=== PATIENT | female | born 1945 | race Caucasian/White ===

== ENCOUNTER 2016-12-24 21:34 | Emergency (ER) | payer MEDICARE, OTHER ==
--- OUTSIDE RECORDS SUMMARY | 2016-12-24 22:33 | XMS REPORT | Continuity of Care Document ---
:1945 Author Organization [facility] ([facility]) Address [address] [place] [address] Phone [phone] Care Team Providers Name Role Phone Talat Carrasco Primary Care Provider [phone] Source Comments This disclosure is being made pursuant to the Care Everywhere program, applicable federal and state laws, and may not contain all informaitonavailable regarding this patient.[facility] ([facility]) Active Allergies and Adverse Reactions Allergen Noted Date Severity Reactions Comments Cefaclor 06/25/2015 Unknown Diphenhydramine 06/25/2015 Unknown Levofloxacin 06/25/2015 Unknown Unclassified Drug Urticaria (Hives),Purpura benadryl Current Medications Prescription Sig. Disp. Refills Start Date End Date Status flecainide 150 mg take 2 tablet by oral 04/24/2014 Active tablet route as needed for atrial fibrillation glimepiride 2 mg Take 0.5 Tabs by 04/24/2014 Active tablet mouth daily triamterene-hydroch Take 1 Tab by mouth 05/19/2008 Active lorothiazide daily (MAXZIDE) 75-50 mg per tablet omeprazole Take 1 Cap by mouth 05/19/2008 Active (PRILOSEC) 20 mg daily enteric coated capsule warfarin (COUMADIN) take as directed by 90 tablet 3 08/24/2015 Active 5 mg tablet anticoagulation clinic amLODIPine 5 mg Take 5 mg by mouth 3 07/15/2016 Active tablet daily. losartan 100 mg Take 100 mg by mouth 1 05/29/2016 Active tablet daily. levothyroxine 25 Take 25 mcg by mouth 0 06/17/2016 Active mcg tablet daily. ROSUVASTATIN Active CALCIUM (CRESTOR PO) loratadine 10 mg Take 10 mg by mouth Active tablet daily. metoPROLol (TOPROL Take 1.5 tablets (150 135 tablet 2 10/23/2016 Active XL) succinate 100 mg total) by mouth mg XL tablet daily. Active Problems Problem Noted Date Sacral mass 10/15/2015 Paroxysmal atrial fibrillation 07/05/2015 Essential hypertension 07/05/2015 Hyperlipidemia 07/05/2015 Most Recent Encounters Date Type Specialty Providers Description 10/23/2016 Refill Cardiac Rehabilitation Ace Morgan, Dx: Paroxysmal atrial MD fibrillation (Primary Dx) Social History Tobacco Use Types Packs/Day Years Used Date Former Smoker Smokeless Tobacco: Never Used Tobacco Cessation:Counseling Given: No Comments: Last Filed Vital Signs Vital Sign Reading Time Taken Blood Pressure 149/63 07/21/2016 10:22 AM CDT Pulse 54 07/21/2016 10:22 AM CDT Temperature 36.4 C (97.5 F) 07/21/2016 10:22 AM CDT Respiratory Rate - - Height 1.702 m (5' 7.01") 07/21/2016 10:22 AM CDT Weight 107.7 kg (237 lb 7 oz) 07/21/2016 10:22 AM CDT Body Mass Index 37.18 07/21/2016 10:22 AM CDT Oxygen Saturation 99% 07/21/2016 10:22 AM CDT Plan of Care Date Type Specialty Providers Description 07/20/2017 Appointment Radiology Chief Comp: Patient Reported Reason For Visit 07/20/2017 Appointment Neurosurgery Yue Hernandez MD Chief Comp: Patient [address] [place] [address] Visit [phone] (Fax) 08/01/2017 Appointment Heart and Vascular Ace Morgan, Chief Comp: Patient MD Reported Reason For [address] [place] [address] [phone] (Fax) Health Maintenance Due Date Last Done Comments Hepatitis B Vaccine (1 of 3 - Primary Series) 1945 Tdap Vaccine 1955 Lipid Disorder Screening 1962 Td Vaccine 1962 Mammogram 1984 Colonoscopy 1994 Zoster Vaccine 2004 Osteoporosis Screening (DXA Bone Density) 2009 Pneumococcal Vaccine (1 of 2 - PCV13) 2009 Influenza Vaccine: Seasonal (#1) 06/05/2016 Results from Last 3 Months Not on file
--- NOTE | 2016-12-24 22:34 | ERNOTE ---
Medical Problem HPI - Narrative Date of Service: 12/24/16 - General Chief Complaint: Palpitations Time Seen by Provider: 12/24/16 22:20 Source: patient Exam Limitations: no limitations - Immun/Allergies/Home Medications Immunizations: IMMUNIZATION HX Immunizations Up to Date Yes History of Influenza Vaccine No Hx Pneumococcal Vaccination No Allergies/Adverse Reactions: Allergies diphenhydramine HCl [From Benadryl] Allergy (Severe, Verified 12/24/16 22:15) Hives cefaclor [From Ceclor] Adverse Reaction (Severe, Verified 12/24/16 22:15) Other levofloxacin [From Levaquin] Adverse Reaction (Severe, Verified 12/24/16 22:15) Nausea Home Medications: HOME MEDICATIONS Glimepiride [Amaryl] 1 mg PO QAM 04/18/14 [Last Taken 04/17/14] Loratadine [Claritin] 10 mg PO DAILY 04/18/14 [Last Taken 04/17/14] Losartan Potassium [Cozaar] 100 mg PO DAILY 04/18/14 [Last Taken 04/17/14] Metoprolol Succinate [Toprol Xl] 150 mg PO DAILY 04/18/14 [Last Taken 04/17/14] Omeprazole Magnesium [Prilosec Otc] 20 mg PO DAILY 04/18/14 [Last Taken 04/17/14 ] Triamterene/Hydrochlorothiazid [Triamterene-Hctz 75-50 mg Tab] 1 each PO DAILY 04/29/14 [Last Taken Unknown] Fluticasone Propionate [Flonase] 2 spray NS DAILY PRN 08/16/14 [Last Taken Unknown] Levothyroxine Sodium [Synthroid] 25 mcg PO DAILY 06/21/15 [Last Taken Unknown] Warfarin Sodium [Coumadin] 5 mg PO DAILY 09/10/15 [Last Taken Unknown] Acetaminophen [Tylenol] 1,000 mg PO Q6H PRN 12/23/15 [Last Taken Unknown] Rosuvastatin Calcium [Crestor] 5 mg PO 3XW 05/12/16 [Last Taken Unknown] amLODIPine BESYLATE [Norvasc] 5 mg PO DAILY 07/03/16 [Last Taken Unknown] - Pain Score Pain Score #1 Pain Score: 0 - History of Present History Narrative: Presents to ER with c/o heart palpitations, onset yesterday, and persisting throughout the day today. Denies any chest pain, but has h/o AFib. Currently on Coumadin, metoprolol, and flecainide. Date (Duration): 12/23/16 Timing: constant Severity: moderate Review of Systems - Review of Systems Constitutional: Present: no symptoms reported EYE: Present: no symptoms reported ENT: Present: no symptoms reported Respiratory: Present: no symptoms reported Cardiology: Present: See HPI, palpitations Gastrointestinal/Abdominal: Present: no symptoms reported Genitourinary: Present: no symptoms reported Musculoskeletal: Present: no symptoms reported Skin: Present: no symptoms reported Neurological: Present: no symptoms reported Endocrine: Present: no symptoms reported Hematologic/Lymphatic: Present: no symptoms reported Psych: Present: no symptoms reported All Other Systems: All systems neg except as marked - Patient's Past Medical History Patient History - Medical: Diabetes Type 2, Hypothyroidism, Obesity, Other Patient History - Cardiac/Respiratory: Atrial Fibrillation Patient History - Cancer: No Hx of Cancer Patient History - Surgical Procedures: Appendectomy, Cholecystectomy, Hysterectomy, Other Patient History - Other: None - Family History Father Family History - Medical: Family History - Cardiac/Respiratory: History Unknown Mother Family History - Medical: Family History - Cardiac/Respiratory: History Unknown - Social History Living Situations: home Abuse History: No History of abuse Psych History: Hx of Anxiety Smoking Status: Never smoker Alcohol Use: none Drug Use: none - Immunizations Immunizations Up to Date: Yes Hx Pneumococcal Vaccination: No History of Influenza Vaccine: No Physical Exam - Physical Exam General Appearance: Present: wd/wn, alert, no apparent distress Eye Exam: Normal inspection: bilateral, PERRL: bilateral, EOMI: bilateral Neck: Present: normal inspection, nontender Respiratory: Present: no respiratory distress, normal breath sounds, no accessory muscle use, chest nontender, lungs clear Cardiovascular/Chest: Present: no murmur, irregularly irregular. Absent: friction rub, chest tenderness Gastrointestinal/Abdominal: Present: normal bowel sounds, nontender, nondistended, soft, no organomegaly Neurological Exam: Present: alert, oriented, normal mood/affect Skin Exam: Present: normal color, warm/dry ED Progress - Results and Orders Patient's Lab Results:: I have reviewed the patient's lab results. - Vital Signs Patient's Vital Signs:: I have reviewed the patient's vital signs. Vital Signs: Vital Signs 12/24/16 22:10 Temperature 36.5 C Pulse Rate 114 H Respiratory 18 Rate Blood Pressure 102/78 O2 Sat by Pulse 94 Oximetry - EKG EKG: atrial fibrillation EKG read: Interp. by me - X-Ray X-Ray #1 X-Ray: chest - No acute finding Interpretation: Interp. by me - NAD - Progress/Reassessment Chief Complaint: General Assessment Departure - Departure Clinical Impression: Chronic a-fib Disposition: Home self-care Condition: Good Instructions: Atrial Fibrillation, [id number] Additional Instructions: Follow up with your PCP JADE. Referrals: Talat Carrasco MD [Primary Care Provider] -
[2016-12-24] MEDS ORDERED: NORMAL SALINE 500 ML IV ONE (22:35)
[2016-12-24 23:17] LABS: Hematocrit 42.1 % (37.0-47.0); Hemoglobin 13.1 gm/dL (12.5-16.0); Mean Cell Volume 81.4 fl (78-100); Mean Corpuscular Hemoglobin 25.3 pg (27-31); Mean Corpuscular Hgb Conc 31.1 g/dl (32-36); Mean Platelet Volume 11.5 fl (6.0-9.5); Neutrophil # 7.5 K/mm3 (1.3-6.0); Neutrophil % 66.9 % (42-75.0); Platelet Count 279 K/mm3 (150-450); Red Blood Count 5.17 M/mm3 (4.2-5.4); Red Cell Distribution Width 16.5 % (11.5-14.0); White Blood Count 11.3 K/mm3 (4.0-10.5)
[2016-12-24 23:30] LABS: Prothrombin Time (Patient) 25.6 Seconds (9.4-11.4)
[2016-12-24 23:31] LABS: INR 2.46 INR (0.90-1.10); Partial Thrombolplastin Time 58.4 Seconds (24-32)
[2016-12-24 23:35] LABS: ALT 29 U/L (19-67); AST 10 U/L (0-48); Albumin * 3.6 gm/dl (3.4-5.0); Alkaline Phosphatase * 184 U/L (50-170); Anion Gap 12.2 mmol/L (6.8-13.8); BUN/Creatinine Ratio 23.7 (9.0-21.6); Bilirubin, Total 0.2 mg/dL (0.0-1.1); Blood Urea Nitrogen 23 mg/dL (3-23); Ca. Corrected For Albumin 9.1 mg/dL (8.4-10.2); Calcium * 9.1 mg/dL (7.9-10.9); Carbon Dioxide 28.7 mmol/L (24-32.6); Chloride 103 mmol/L (97-106); Glucose * 286 mg/dL (70-110); Potassium 3.9 mmol/L (3.4-4.6); Sodium 140 mmol/L (132-142); Total Protein 8.1 gm/dL (6.2-8.2); Troponin I Less than 0.017 ng/ml (0.00-0.10)
[2016-12-25] MEDS ORDERED: DILTIAZEM HCL 5 MG/ML VIAL IV ONE ×2 (00:09→00:10)
[2016-12-25 02:12] VITALS: BP 124/68
== END 2016-12-25 01:39 | disposition home or self-care (01) ==
LOC: ER 21:34
DX: I48.2 Chronic atrial fibrillation (principal); Z79.01 Long term (current) use of anticoagulants

== ENCOUNTER 2017-01-12 03:42 | Emergency (ER) | payer MEDICARE, OTHER ==
[2017-01-12] MEDS ORDERED: LIDOCAINE HCL 20 ML UDC PO ONE (03:52)
[2017-01-12] MEDS ORDERED: MAG HYDROX/ALUMINUM HYD/SIMETH 30 ML UDC PO ONE (03:52)
--- OUTSIDE RECORDS SUMMARY | 2017-01-12 03:57 | XMS REPORT | Continuity of Care Document ---
:1945 Author Organization [facility] ([facility]) Address [address] [place] [address] Phone [phone] Care Team Providers Name Role Phone Talat Carrasco Primary Care Provider [phone] Source Comments This disclosure is being made pursuant to the Care Everywhere program, applicable federal and state laws, and may not contain all informaitonavailable regarding this patient.[facility] ([facility]) Active Allergies and Adverse Reactions Allergen Noted Date Severity Reactions Comments Cefaclor 06/25/2015 Unknown Diphenhydramine 06/25/2015 Unknown Levofloxacin 06/25/2015 Unknown Unclassified Drug Urticaria (Hives),Purpura benadryl Current Medications Prescription Sig. Disp. Refills Start End Date Status Date glimepiride 2 mg Take 2 mg by mouth Active tablet daily. 4 triamterene-hydroc Take 1 Tab by mouth Active hlorothiazide daily 8 (MAXZIDE) 75-50 mg per tablet omeprazole Take 1 Cap by mouth Active (PRILOSEC) 20 mg daily 8 enteric coated capsule warfarin take as directed by 90 tablet 3 Active (COUMADIN) 5 mg FM anticoagulation 5 tablet clinic amLODIPine 5 mg Take 5 mg by mouth 3 Active tablet daily. 6 losartan 100 mg Take 100 mg by 1 Active tablet mouth daily. 6 levothyroxine 25 Take 25 mcg by 0 Active mcg tablet mouth daily. 6 ROSUVASTATIN Active CALCIUM (CRESTOR PO) loratadine 10 mg Take 10 mg by mouth Active tablet daily. metoPROLol Take 1 tablet (200 90 tablet 3 Active succinate 200 mg mg total) by mouth 7 XL tablet daily. flecainide 150 mg take 2 tablet by 12/26/19 Discontinued tablet oral route as 4 17 needed for atrial fibrillation metoPROLol (TOPROL Take 1.5 tablets 135 tablet 2 12/26/19 Discontinued XL) succinate 100 (150 mg total) by 6 17 mg XL tablet mouth daily. Active Problems Problem Noted Date Sacral mass 10/15/2015 Paroxysmal atrial fibrillation 07/05/2015 Essential hypertension 07/05/2015 Hyperlipidemia 07/05/2015 Most Recent Encounters Date Type Specialty Providers Description 12/26/2016 Office Visit Cardiac Rehabilitation Ace Morgan Dx: Geraldine Sarmiento MD atrial fibrillation (Primary Dx) 10/23/2016 Refill Cardiac Rehabilitation Ace Morgan Dx: Geraldine Sarmiento MD atrial fibrillation (Primary Dx) Social History Tobacco Use Types Packs/Day Years Used Date Former Smoker Smokeless Tobacco: Never Used Tobacco Cessation:Counseling Given: No Comments: Last Filed Vital Signs Vital Sign Reading Time Taken Blood Pressure 144/87 12/26/2016 9:02 AM STERILE TECHNICIAN Pulse 82 12/26/2016 9:02 AM STERILE TECHNICIAN Temperature 36.4 C (97.5 F) 07/21/2016 10:22 AM CDT Respiratory Rate - - Height 1.702 m (5' 7") 12/26/2016 9:02 AM STERILE TECHNICIAN Weight 111 kg (244 lb 11.4 oz) 12/26/2016 9:02 AM STERILE TECHNICIAN Body Mass Index 38.32 12/26/2016 9:02 AM STERILE TECHNICIAN Oxygen Saturation 98% 12/26/2016 9:02 AM STERILE TECHNICIAN Plan of Care Date Type Specialty Providers Description 02/28/2017 Appointment Heart and Vascular Ace Morgan, Chief Comp: Patient MD Reported Reason For [address] [place] [address] [phone] (Fax) 07/20/2017 Appointment Radiology Chief Comp: Patient Reported Reason For Visit 07/20/2017 Appointment Neurosurgery Yue Hernandez MD Chief Comp: Patient [address] [place] [address] Visit [phone] (Fax) 08/01/2017 Appointment Heart and Vascular Ace Morgan, Chief Comp: Patient Reported Reason For [address] [place] [address] [phone] (Fax) Health Maintenance Due Date Last Done Comments Hepatitis B Vaccine (1 of 3 - Primary Series) 1945 Tdap Vaccine 1955 Lipid Disorder Screening 1962 Td Vaccine 1962 Mammogram 1984 Colonoscopy 1994 Zoster Vaccine 2004 Osteoporosis Screening (DXA Bone Density) 2009 Pneumococcal Vaccine (1 of 2 - PCV13) 2009 Influenza Vaccine: Seasonal (#1) 06/05/2016 Results from Last 3 Months ECG - EKG 12 LEAD (12/26/2016 9:07 AM) Component Value Range ECG SEVERITY - ABNORMAL ECG - VENT. RATE 96 bpm RR 625 ms QRSD INTERVAL 102 ms QT INTERVAL 380 ms QTC INTERVAL 481 ms QRS AXIS 106 degrees T WAVE AXIS 35 degrees REPORT ATRIAL FIBRILLATION RIGHT VENTRICULAR HYPERTROPHY Interpreting Physician: Ace Morgan MD
[2017-01-12 04:17] LABS: Hematocrit 40.3 % (37.0-47.0); Hemoglobin 12.7 gm/dL (12.5-16.0); Mean Cell Volume 80.9 fl (78-100); Mean Corpuscular Hemoglobin 25.5 pg (27-31); Mean Corpuscular Hgb Conc 31.5 g/dl (32-36); Mean Platelet Volume 11.7 fl (6.0-9.5); Neutrophil # 6.4 K/mm3 (1.3-6.0); Neutrophil % 64.6 % (42-75.0); Platelet Count 289 K/mm3 (150-450); Red Blood Count 4.98 M/mm3 (4.2-5.4); Red Cell Distribution Width 15.9 % (11.5-14.0); White Blood Count 9.9 K/mm3 (4.0-10.5)
[2017-01-12 04:30] VITALS: BP 153/76
[2017-01-12 04:35] LABS: ALT 20 U/L (19-67); AST 11 U/L (0-48); Albumin * 3.2 gm/dl (3.4-5.0); Alkaline Phosphatase * 183 U/L (50-170); BUN/Creatinine Ratio 26.7 (9.0-21.6); Bilirubin, Total 0.3 mg/dL (0.0-1.1); Blood Urea Nitrogen 23 mg/dL (3-23); Ca. Corrected For Albumin 9.1 mg/dL (8.4-10.2); Calcium * 8.8 mg/dL (7.9-10.9); Carbon Dioxide 26.5 mmol/L (24-32.6); Chloride 105 mmol/L (97-106); Glucose * 210 mg/dL (70-110); Potassium 3.5 mmol/L (3.4-4.6); Sodium 141 mmol/L (132-142); Total Protein 7.6 gm/dL (6.2-8.2); Troponin I Less than 0.017 ng/ml (0.00-0.10)
--- NOTE | 2017-01-12 05:07 | ERNOTE ---
Chest Pain/Cardiac HPI Date of Service: 01/12/17 Chief Complaint: Chest Pain Time Seen by Provider: 01/12/17 03:51 Source: patient Exam Limitations: no limitations Immunizations: IMMUNIZATION HX Immunizations Up to Date Yes History of Influenza Vaccine No Hx Pneumococcal Vaccination No Allergies/Adverse Reactions: Allergies diphenhydramine HCl [From Benadryl] Allergy (Severe, Verified 12/24/16 22:15) Hives cefaclor [From Ceclor] Adverse Reaction (Severe, Verified 12/24/16 22:15) Other levofloxacin [From Levaquin] Adverse Reaction (Severe, Verified 12/24/16 22:15) Nausea Home Medications: HOME MEDICATIONS Glimepiride [Amaryl] 1 mg PO QAM 04/18/14 [Last Taken 04/17/14] Loratadine [Claritin] 10 mg PO DAILY 04/18/14 [Last Taken 04/17/14] Losartan Potassium [Cozaar] 100 mg PO DAILY 04/18/14 [Last Taken 04/17/14] Metoprolol Succinate [Toprol Xl] 150 mg PO DAILY 04/18/14 [Last Taken 04/17/14] Omeprazole Magnesium [Prilosec Otc] 20 mg PO DAILY 04/18/14 [Last Taken 04/17/14 ] Triamterene/Hydrochlorothiazid [Triamterene-Hctz 75-50 mg Tab] 1 each PO DAILY 04/29/14 [Last Taken Unknown] Fluticasone Propionate [Flonase] 2 spray NS DAILY PRN 08/16/14 [Last Taken Unknown] Levothyroxine Sodium [Synthroid] 25 mcg PO DAILY 06/21/15 [Last Taken Unknown] Warfarin Sodium [Coumadin] 5 mg PO DAILY 09/10/15 [Last Taken Unknown] Acetaminophen [Tylenol] 1,000 mg PO Q6H PRN 12/23/15 [Last Taken Unknown] Rosuvastatin Calcium [Crestor] 5 mg PO 3XW 05/12/16 [Last Taken Unknown] amLODIPine BESYLATE [Norvasc] 5 mg PO DAILY 07/03/16 [Last Taken Unknown] Famotidine [Pepcid] 40 mg PO HS #30 tab 01/12/17 [Last Taken Unknown] Narrative: pt complains of "really bad heartburn" which she has had before. No nausea or vomiting Review of Systems - Review of Systems Constitutional: Present: no symptoms reported EYE: Present: no symptoms reported ENT: Present: no symptoms reported Respiratory: Present: no symptoms reported Cardiology: Present: no symptoms reported Gastrointestinal/Abdominal: Present: See HPI Genitourinary: Present: no symptoms reported Musculoskeletal: Present: no symptoms reported Skin: Present: no symptoms reported - Patient's Past Medical History Patient History - Medical: Diabetes Type 2, Hypothyroidism, Obesity, Other Patient History - Cardiac/Respiratory: Atrial Fibrillation, Hypertension Patient History - Cancer: No Hx of Cancer Patient History - Surgical Procedures: Appendectomy, Cholecystectomy, Hysterectomy, Other Patient History - Other: None LMP (females 10-50): Menopausal - Family History Father Family History - Medical: Family History - Cardiac/Respiratory: History Unknown Mother Family History - Medical: Family History - Cardiac/Respiratory: History Unknown - Social History Living Situations: spouse Abuse History: No History of abuse Psych History: Hx of Anxiety Smoking Status: Former smoker Have you smoked in the past 12 months: No Do you dip or chew tobacco: No Alcohol Use: none Drug Use: none - Immunizations Immunizations Up to Date: Yes Hx Pneumococcal Vaccination: No History of Influenza Vaccine: No Physical Exam - Physical Exam General Appearance: Present: wd/wn, alert, no apparent distress Eye Exam: Normal inspection: bilateral, PERRL: bilateral, EOMI: bilateral Ears, Nose, Throat: Present: normal ENT inspection Neck: Present: normal inspection, nontender Respiratory: Present: no respiratory distress, normal breath sounds Cardiovascular/Chest: Present: regular rate, rhythm, no murmur Gastrointestinal/Abdominal: Present: normal bowel sounds, nontender, nondistended, other - GI coctail aleviated the sensation of heartburn that pt was feeling Back Exam: Present: normal inspection Extremity Exam: Present: normal inspection Neurological Exam: Present: alert, oriented, normal mood/affect ED Progress - Results and Orders Patient's Lab Results:: I have reviewed the patient's lab results. - Vital Signs Patient's Vital Signs:: I have reviewed the patient's vital signs. Vital Signs: Vital Signs 01/12/17 01/12/17 03:43 04:28 Temperature 37 C Pulse Rate 84 91 Respiratory 20 19 Rate Blood Pressure 156/81 153/76 O2 Sat by Pulse 93 94 Oximetry - Progress/Reassessment Chief Complaint: Chest Pain Departure - Departure Clinical Impression: Gastritis Qualifiers: Gastritis type: unspecified gastritis Chronicity: unspecified Gastritis bleeding: without bleeding Qualified Code(s): K29.70 - Gastritis, unspecified, without bleeding Disposition: Home self-care Condition: Good Instructions: Gastritis, Adult, [id number] Referrals: Talat Carrasco MD [Primary Care Provider] - Prescriptions: Famotidine [Pepcid] 40 mg PO HS #30 tab
== END 2017-01-12 05:20 | disposition home or self-care (01) ==
LOC: ER 03:42
DX: K29.70 Gastritis, unspecified, without bleeding (principal); Z87.891 Personal history of nicotine dependence

== ENCOUNTER 2017-03-14 10:19 | Day surgery (SDC) | payer MEDICARE, OTHER ==
[~2017-03-14 10:19] MED LIST: RINGERS SOLUTION,LACTATED 1,000 ML IV PRN
--- OUTSIDE RECORDS SUMMARY | 2017-03-14 10:23 | XMS REPORT | Continuity of Care Document ---
:1945 Author Organization [facility] ([facility]) Address [address] [place] [address] Phone [phone] Care Team Providers Name Role Phone Talat Carrasco Primary Care Provider [phone] Source Comments This disclosure is being made pursuant to the Care Everywhere program, applicable federal and state laws, and may not contain all informaitonavailable regarding this patient.[facility] ([facility]) Active Allergies and Adverse Reactions Allergen [...] 20 mg daily 8 enteric coated capsule amLODIPine 5 mg Take 5 mg by mouth 3 Active tablet daily. 6 losartan 100 mg Take 100 mg by 1 Active tablet mouth daily. 6 levothyroxine 25 Take 25 mcg by 0 Active mcg tablet mouth daily. 6 loratadine 10 mg Take 10 mg by mouth Active tablet daily. metoPROLol Take 1 tablet (200 90 tablet 3 Active succinate 200 mg mg total) by mouth 7 XL tablet daily. warfarin take as directed by 90 tablet 3 Active (COUMADIN) 5 mg FM anticoagulation 7 tablet clinic warfarin take as directed by 90 tablet 3 02/21/20 Discontinued (COUMADIN) 5 mg FM anticoagulation 5 17 tablet clinic ROSUVASTATIN 02/29/20 Discontinued CALCIUM (CRESTOR 17 PO) Active Problems Problem Noted Date Sacral mass 10/15/2015 Permanent atrial fibrillation 07/05/2015 Essential hypertension 07/05/2015 Hyperlipidemia 07/05/2015 Most Recent Encounters Date Type Specialty Providers Description 02/28/2017 Office Visit Heart and Vascular Ace Morgan Dx: Permanent atrial MD [place] fibrillation (Primary Dx) 02/20/2017 Refill Cardiac Rehabilitation Ace Morgan Dx: Chronic atrial MD [place] fibrillation (Primary Dx) 12/26/2016 Office Visit Cardiac Rehabilitation Ace Morgan Dx: Paroxysmal MD [place] atrial fibrillation (Primary Dx) Social History Tobacco Use Types Packs/Day Years Used Date Former Smoker Smokeless Tobacco: Never Used Tobacco Cessation:Counseling Given: No Comments: Last Filed Vital Signs Vital Sign Reading Time Taken Blood Pressure 140/82 02/28/2017 2:27 PM CDT Pulse 86 02/28/2017 2:27 PM CDT Temperature 36.4 C (97.5 F) 07/21/2016 10:22 AM CDT Respiratory Rate - - Height 1.702 m (5' 7") 12/26/2016 9:02 AM HEALTH CARE TECHNICIAN Weight 110.224 kg (243 lb) 02/28/2017 2:27 PM CDT Body Mass Index 38.05 02/28/2017 2:27 PM CDT Oxygen Saturation 98% 12/26/2016 9:02 AM HEALTH CARE TECHNICIAN Plan of Care Date Type Specialty Providers Description 07/20/2017 Appointment Radiology Chief Comp: Patient Reported Reason For Visit 07/20/2017 Appointment Neurosurgery Yue Hernandez MD Chief Comp: Patient [address] [place] [address] Visit [phone] (Fax) 08/01/2017 Appointment Heart and Vascular Ace Morgan, Chief Comp: Patient Reported Reason For [address] [place] [address] [phone] (Fax) Health Maintenance Due Date Last Done Comments Hepatitis B Vaccine (1 of 3 - Primary Series) 1945 Tdap Vaccine 1955 Lipid Disorder Screening 1962 Td Vaccine 1962 Mammogram 1984 Colonoscopy 1994 Zoster Vaccine 2004 Osteoporosis Screening (DXA Bone Density) 2009 Pneumococcal Vaccine (1 of 2 - PCV13) 2009 Influenza Vaccine: Seasonal (Season Ended) 2017 Results from Last 3 Months ECG - [...]
[2017-03-14] MEDS ORDERED: RINGERS SOLUTION,LACTATED 1,000 ML IV PRN (12:12)
[2017-03-14 13:06] VITALS: BP 139/77
--- NOTE | 2017-03-14 14:15 | OR ---
Operative Report - Dictated Report Narrative: Operative Report Date of operation: 03/14/2017 Preoperative diagnosis: Upper GI bleeding Postoperative diagnosis: Hiatal hernia with significant gastroesophageal reflux. Enterogastric bile reflux and gastropathy (CLOtest pending) Operation: EGD with biopsy for CLOtest Surgeon: Dr Hood Anesthesia: ALIA MCCONNELL CRNA Indications for procedure: The patient is a 71-year-old female referred by Dr. Carrasco. She had a recent episode of hematemesis. She is on Coumadin for atrial fibrillation. She has a long history of GERD symptoms with a previous EGD in the . She was told she "makes too much acid" Findings: Hiatal hernia with significant gastroesophageal reflux. Enterogastric bile reflux with gastropathy. Normal appearing duodenum Narrative of procedure: The patient was identified preoperatively, and prior to the administration of anesthetic a multidisciplinary timeout was observed With the patient in the recumbent position, a bite-block was placed, intravenous sedation was administered, and the patient's eyes covered with a towel. A flexible nasopharyngoscope was used to inspect the right and left nasal passages which appeared normal as did the nasopharynx. The flexible fiberoptic gastroscope was advanced into the posterior pharynx which appeared normal. The supraglottic larynx appeared normal. The cords appeared normal, moved well, and opposed in the midline. The scope was advanced under direct vision into the proximal esophagus which appeared normal. The esophagus appeared freely distensible with normal mucosa. There was gastroesophageal reflux of bilious material all the way to the cervical esophagus. This was carefully suctioned. The esophageal mucosa appeared normal down to the gastroesophageal junction which was sharp and noninflamed. The GE junction appeared normally distensible. There was a sliding hiatal hernia. The scope was advanced into the stomach proper which was insufflated with air. The stomach contained bilious material. There was dao gastric erythema and friability but no efrain ulcers or neoplastic lesions were appreciated including a retroflex view of the gastric fundus which demonstrated the hiatal hernia. The scope was redirected toward the pylorus. There was more erythema in the prepyloric area, and free reflux of bile into the stomach was noted. The pylorus appeared patent. The scope was advanced into the duodenal bulb which appeared normal. The scope was advanced further to the horizontal portion of the duodenum which appeared normal, specifically the villous architecture appeared well preserved and clear bile was present. The scope was slowly withdrawn through the duodenal bulb with confirmation that no active ulcer was present. The scope was withdrawn into the stomach and a claims customer service representative biopsies of gastric mucosa was obtained for CLOtest. The biopsy site were seen to be hemostatic. The insufflated air was removed, the scope withdrawn from the patient, and the procedure terminated. The patient tolerated the anesthetic and procedure well without complication and was transferred back to the ambulatory surgery area awake and in stable condition. The patient remained stable throughout a period of postoperative observation, was able to tolerate by mouth intake, and was up without assistance. I shared the operative findings with her and her , and she was given copies of the photographs which appear in the medical record. She was discharged home with instructions not to engage in hazardous activity today, but may return to normal activity tomorrow and advance diet as tolerated. She is to continue medications as listed in the history and physical exam. I made arrangements to contact the patient with the CLOtest report and will make further recommendation based upon that result. Reviewed and electronically signed
== END 2017-03-14 10:20 | disposition home or self-care (01) ==
LOC: AMB 10:19
PROVIDERS: ATTEND Surgery
PROC: 0DB68ZX Excision of Stomach, Via Natural or Artificial Opening Endoscopic, Diagnostic (ICD-10-PCS; principal; 2017-03-14 11:45)
DX: K21.9 Gastro-esophageal reflux disease without esophagitis (principal); K44.9 Diaphragmatic hernia without obstruction or gangrene; E11.9 Type 2 diabetes mellitus without complications; E78.00 Pure hypercholesterolemia, unspecified; I10 Essential (primary) hypertension; I48.0 Paroxysmal atrial fibrillation; E66.9 Obesity, unspecified; Z68.39 Body mass index [BMI] 39.0-39.9, adult; Z87.891 Personal history of nicotine dependence